=== PATIENT | female | born 1975 | race Caucasian/White ===

== ENCOUNTER 2017-01-21 20:24 | Emergency (ER) | payer MEDICARE, OTHER ==
[2017-01-21] MEDS ORDERED: APAP/HYDROCODONE 325/5 TAB PO ONE (20:33)
[2017-01-21] MEDS ORDERED: APAP/HYDROCODONE 325/5 TAB ONE (20:35)
[2017-01-21 20:43] LABS: BASOPHILS % (AUTO) 1 % (0-3); EOSINOPHILS % (AUTO) 1 % (0-9); HEMATOCRIT 37 % (35-47); MEAN CORPUSCULAR HGB CONC 35.3 gm/dl (32.0-36.0); MEAN CORPUSCULAR VOLUME 91 fL (81-99); MONOCYTES % (AUTO) 7.3 % (0-12); NEUTROPHILS % (AUTO) 73.6 % (37-80)
[2017-01-21 20:55] LABS: ALBUMIN 3.5 gm/dl (3.4-5.0); CALCIUM 8.6 mg/dl (8.5-10.1); POTASSIUM 3.5 mMol/L (3.5-5.1)
[2017-01-21] MEDS ORDERED: SODIUM CHLORIDE 0.9% 1000ML 1,000 ML IV ONE (20:55)
[2017-01-21 21:24] VITALS: RESP 20
[2017-01-21 21:28] VITALS: TEMP 97.6
[2017-01-21] MEDS ORDERED: MORPHINE SULFATE 10 MG/ML SOL IV ONE (21:30)
[2017-01-21] MEDS ORDERED: MORPHINE SULFATE 10 MG/ML SOL ONE (21:31)
[2017-01-21 21:47] VITALS: BP 103/69; PULSE 96; O2SAT 99
[2017-01-21] MEDS ORDERED: APAP/OXYCODONE 325/5 TAB PO ONE (22:21)
[2017-01-21] MEDS ORDERED: APAP/OXYCODONE 325/5 TAB ONE (22:27)
[2017-01-21] MEDS ORDERED: ONDANSETRON 4 MG ODT BU ONE (22:38)
[2017-01-21] MEDS ORDERED: ONDANSETRON 4 MG ODT ONE (22:39)
[2017-01-22 00:52] LABS: APPEARANCE,URINE Cloudy; BILIRUBIN,URINE NEGATIVE (NEGATIVE); COLOR,URINE Red; GLUCOSE, URINE (UA) NEGATIVE (NEGATIVE); KETONES,URINE NEGATIVE (NEGATIVE); LEUKOCYTE ESTERASE ,URINE NEGATIVE (NEGATIVE); NITRATE,URINE NEGATIVE (NEGATIVE); OCCULT BLOOD,URINE 3+ (NEG-TRACE); PH,URINE 5.5; UROBILINOGEN,URINE 0.2 (0.2-1.0 EU)
[2017-01-22 00:56] LABS: RBC,URINE TNTC (0-3AV/HPF)
== END 2017-01-21 22:45 | disposition home or self-care (01) | DRG 779 ==
LOC: ED 20:24
DX: O03.1 Delayed or excessive hemorrhage following incomplete spontaneous abortion (principal)
CPT/HCPCS: 36415; 80053; 81001; 85025; 96365; 96374; 99284; 99285; J2270

== ENCOUNTER 2018-11-01 14:12 | Emergency (ER) | payer MEDICARE, OTHER ==
[2018-11-01 14:33] VITALS: BP 100/46; PULSE 95; RESP 18; TEMP 97.6; O2SAT 96
== END 2018-11-01 16:28 | disposition home or self-care (01) | DRG 556 ==
LOC: ED 14:12
DX: M79.602 Pain in left arm (principal); M79.601 Pain in right arm
CPT/HCPCS: 99282